=== PATIENT | female | born 1945 | race African-American/Black ===

== ENCOUNTER 2016-09-27 13:47 | Outpatient (CLI) | payer MEDICARE ==
[2016-09-27 16:37] LABS: ALT (SGPT) 17 U/L (0-55); AST (SGOT) 16 U/L (5-34); Albumin 4.1 g/dL (3.4-4.8); Alkaline Phosphatase 50 U/L (40-150); Anion Gap 13 mmol/L (10-20); BUN (Urea Nitrogen) 17 mg/dL (9.8-20.1); Calc. Creatinine Clearance 0 mL/min (70-130); Calcium 9.4 mg/dL (7.8-10.44); Carbon Dioxide 28 mmol/L (23-31); Chloride 105 mmol/L (98-107); Estimated GFR-MDRD 83; Globulin 2.9 g/dL (2.4-3.5); Glucose 85 mg/dL (83-110); Potassium 3.8 mmol/L (3.5-5.1); Sodium 142 mmol/L (136-145)
[2016-09-27 17:36] LABS: Hemoglobin A1c 5.4 % (4.0-6.0)
[2016-09-27 21:13] LABS: Eosinophils 3 % (0-10); Hemoglobin 13.5 g/dL (12.0-16.0); Lymphocytes 27 % (21-51); MDiff Complete? YES; Mean Corpuscular HGB CONC 32.8 g/dL (32.0-36.0); Mean Corpuscular Hemoglobin 24.3 pg (27.0-31.0); Microcytosis SLIGHT = 6-15 cells (100X) (0-5/hpf); Monocytes 7 % (0-10); Neutrophil 63 % (42-75); PLT Morphology Comment Appears Adequate; Platelet Count 176 thou/uL (130-400); RBC Distribution Width 13.8 % (11.5-14.5); Red Blood Cell (RBC) Count 5.57 mill/uL (4.20-5.40)
[2016-09-27 21:37] LABS: White Blood Cell (WBC) Count 8.4 thou/uL (4.8-10.8)
== END 2016-09-27 13:48 | disposition home or self-care (01) ==
LOC: LABLEX 13:47
PROVIDERS: ATTEND Family Medicine
DX: E78.5 Hyperlipidemia, unspecified (principal); E05.90 Thyrotoxicosis, unspecified without thyrotoxic crisis or storm; E11.9 Type 2 diabetes mellitus without complications; I10 Essential (primary) hypertension; R71.8 Other abnormality of red blood cells
CPT/HCPCS: 80053; 83036; 84443; 85025

== ENCOUNTER 2016-11-19 13:38 | Outpatient (CLI) | payer MEDICARE ==
[2016-11-19 15:01] LABS: Free T4 (Free Thyroxine) 1.04 ng/dL (0.70-1.48); Thyroid Stimulating Hormone 0.5047 uIU/mL (0.35-4.94)
== END 2016-11-19 13:39 | disposition home or self-care (01) ==
LOC: BURLAB 13:38
PROVIDERS: ATTEND Internal Medicine Endocrinology, Diabetes & Metabolism
DX: E03.9 Hypothyroidism, unspecified (principal); E05.90 Thyrotoxicosis, unspecified without thyrotoxic crisis or storm
CPT/HCPCS: 36415; 84439; 84443; 84481

== ENCOUNTER 2019-07-22 07:16 | Emergency (ER) | payer MEDICARE ==
[2019-07-22] MEDS ORDERED: methylPREDNISolone Sod Succ/PF 125 MG/2 ML VIAL ONE (07:41)
[2019-07-22] MEDS ORDERED: Albuterol Sulfate 2.5 mg/0.5 ml Neb ONE ×2 (08:13→08:14)
== END 2019-07-22 08:44 | disposition home or self-care (01) ==
LOC: BURERS 07:16
DX: J45.901 Unspecified asthma with (acute) exacerbation (principal); E11.9 Type 2 diabetes mellitus without complications; E78.5 Hyperlipidemia, unspecified; E78.00 Pure hypercholesterolemia, unspecified; I10 Essential (primary) hypertension; Z79.899 Other long term (current) drug therapy
CPT/HCPCS: 94640; 96372; J2930; J7611; J7620

== ENCOUNTER 2019-07-26 13:35 | Inpatient (IN) | payer MEDICARE ==
[2019-07-26] MEDS ORDERED: Albuterol Sulfate 1.25 MG/3 ML NEB ONE ×2 (14:00→14:50)
[2019-07-26] MEDS ORDERED: Magnesium 2 GM/50 ML BAG (IN WATER) ONE (14:25)
[2019-07-26] MEDS ORDERED: cefTRIAXone\\ROCEPHIN 2 GM VIAL ONE ×2 (14:25→15:16)
[2019-07-26] MEDS ORDERED: Sodium Chloride 0.9% 100 ML ONE ×2 (14:27→15:16)
[2019-07-26 14:38] LABS: #Basophils 0.1 thou/uL (0.0-0.2); #Eosinphils 0.5 thou/uL (0.0-0.7); #Lymphocytes 1.7 thou/uL (1.20-3.40); #Monocytes 0.6 thou/uL (0.11-0.59); #Neutrophils 6.3 thou/uL (1.40-6.50); %Basophils 1.6 % (0.0-1.0); %Eosinophils 5.2 % (0.0-10.0); %Monocytes 6.2 % (0.0-10.0); Mean Corpuscular HGB CONC 31.1 g/dL (32.0-36.0); Mean Corpuscular Hemoglobin 22.1 pg (27.0-31.0); Mean Corpuscular Volume 71.3 fL (78.0-98.0); Platelet Count 277 thou/uL (130-400); RBC Distribution Width 15.5 % (11.5-14.5); Red Blood Cell (RBC) Count 6.32 mill/uL (4.20-5.40); White Blood Cell (WBC) Count 9.2 thou/uL (4.8-10.8)
[2019-07-26 14:48] LABS: Anion Gap 14 mmol/L (10-20); BUN (Urea Nitrogen) 11 mg/dL (9.8-20.1); Calc. Creatinine Clearance 0 mL/min (70-130); Calcium 9.6 mg/dL (7.8-10.44); Carbon Dioxide 29 mmol/L (23-31); Chloride 104 mmol/L (98-107); Estimated GFR-MDRD 71; Glucose 145 mg/dL (83-110); Potassium 4.1 mmol/L (3.5-5.1); Sodium 143 mmol/L (136-145)
[2019-07-26 14:52] LABS: Hypochromia SLIGHT = 6-15 cells (100X) (0-5/hpf); Microcytosis SLIGHT = 6-15 cells (100X) (0-5/hpf)
[2019-07-26] MEDS ORDERED: methylPREDNISolone Sod Succ/PF 125 MG/2 ML VIAL ONE (15:48)
[2019-07-26] MEDS ORDERED: Azithromycin 250 MG TAB ONE (15:48)
[2019-07-26 17:45] VITALS: BMI 40.7
[2019-07-26] MEDS ORDERED: Ventolin HFA Inhaler 60 PUFF INHALER INH PRN (18:03)
[2019-07-26] MEDS ORDERED: Acetaminophen 325 MG TAB PO PRN (19:01)
[2019-07-26] MEDS ORDERED: Ondansetron ODT 4 MG TAB PO PRN (19:01)
[2019-07-26] MEDS ORDERED: Ondansetron PF 4 MG/2 ML Vial SLOW IVP PRN (19:01)
[2019-07-26] MEDS ORDERED: Albuterol Sulfate 2.5 mg/3 ml Neb NEB PRN (19:02)
[2019-07-26] MEDS: Sodium Chloride 0.9% 1,000 ML IV SCH (19:10)
--- NOTE | 2019-07-26 20:20 | RAD ---
PORTABLE CHEST: 07/26/19 An AP portable film at 1405 is compared with a prior study dated 03/06/19. The heart is not large today. There are no congestive findings or acute interstitial infiltrates. The right hilum is still somewhat prominent in size, so I cannot exclude pathology here, though it does not seem tremendously different than before. There are no large effusions. Some minor right basilar s treaking may be scarring. It is difficult to fully assess the left base on this portable study. IMPRESSION: 1. Overall improvement in the appearance of the chest since the February exam. 2. Mild right hilar enlargement, not unlike the prior study. POS: HOME
[2019-07-26] MEDS ORDERED: Non-Formulary Item 1 EACH (Lisinopril/Hydrochlorothiazide [Lisinopril-Hctz 20-12.5 Mg Tab PO SCH (21:00)
[2019-07-26] MEDS: Hydrochlorothiazide 25 MG TAB PO SCH (21:08)
[2019-07-26] MEDS: Simvastatin 40 MG TAB PO SCH (21:09)
[2019-07-26] MEDS: Lisinopril 20 MG TAB PO SCH (21:09)
[2019-07-26] MEDS: Amlodipine 5 MG TAB PO SCH (21:10)
[2019-07-26] MEDS: methylPREDNISolone Sod Succ/PF 125 MG/2 ML VIAL IVP SCH (21:19)
[2019-07-27] MEDS: Sodium Chloride 0.9% 1,000 ML IV SCH (05:17)
[2019-07-27] MEDS: methylPREDNISolone Sod Succ/PF 125 MG/2 ML VIAL IVP SCH ×3 (05:18→21:06)
[2019-07-27 05:59] LABS: #Basophils 0.1 thou/uL (0.0-0.2); #Lymphocytes 1.3 thou/uL (1.20-3.40); #Monocytes 0.1 thou/uL (0.11-0.59); #Neutrophils 10.6 thou/uL (1.40-6.50); %Basophils 0.5 % (0.0-1.0); %Eosinophils 0.1 % (0.0-10.0); %Lymphocytes 10.8 % (21.0-51.0); %Monocytes 0.7 % (0.0-10.0); %Neutrophils 87.9 % (42.0-75.0); Hemoglobin 13.3 g/dL (12.0-16.0); Mean Corpuscular HGB CONC 31.6 g/dL (32.0-36.0); Mean Corpuscular Hemoglobin 22.3 pg (27.0-31.0); Mean Corpuscular Volume 70.4 fL (78.0-98.0); Mean Platelet Volume 8.2 fL (7.4-10.4); Platelet Count 262 thou/uL (130-400); RBC Distribution Width 15.5 % (11.5-14.5); Red Blood Cell (RBC) Count 5.98 mill/uL (4.20-5.40)
[2019-07-27 06:00] LABS: ALT (SGPT) 16 U/L (8-55); AST (SGOT) 11 U/L (5-34); Alkaline Phosphatase 59 U/L (40-110); Anion Gap 16 mmol/L (10-20); BUN (Urea Nitrogen) 16 mg/dL (9.8-20.1); Bilirubin, Total 0.4 mg/dL (0.2-1.2); Calc. Creatinine Clearance 100 mL/min (70-130); Calcium 9.1 mg/dL (7.8-10.44); Carbon Dioxide 23 mmol/L (23-31); Chloride 106 mmol/L (98-107); Estimated GFR-MDRD 80; Globulin 2.7 g/dL (2.4-3.5); Glucose 231 mg/dL (83-110); Potassium 4.1 mmol/L (3.5-5.1); Protein, Total 6.7 g/dL (6.0-8.3); Sodium 141 mmol/L (136-145)
[2019-07-27] MEDS ORDERED: Dextrose 5% in Water 1,000 ML IV PRN (06:05)
[2019-07-27] MEDS ORDERED: Dextrose 50% Abboject 50 ML SYRINGE SLOW IVP PRN (06:05)
[2019-07-27 06:31] LABS: Anisocytosis SLIGHT = 6-15 cells (100X) (0-5/hpf); MDiff Complete? YES; Microcytosis SLIGHT = 6-15 cells (100X) (0-5/hpf); Platelet Morphology Comment Appears Adequate
[2019-07-27] MEDS: Mometasone/Formoterol 60 PUFF AER INH SCH ×2 (07:15→18:27)
[2019-07-27] MEDS: HumaLOG 300 UNITS/3 ML VIAL SC PRN ×4 (08:36→21:38)
[2019-07-27] MEDS: Famotidine 20 MG TAB PO SCH ×2 (08:36→21:10)
[2019-07-27] MEDS: Hydrochlorothiazide 25 MG TAB PO SCH ×2 (08:37→21:09)
[2019-07-27] MEDS: metFORMIN 500 MG TAB PO SCH (08:37)
[2019-07-27] MEDS: Azithromycin 250 MG TAB PO SCH (08:37)
[2019-07-27] MEDS: Aspirin 81 mg Enteric Coated Tablet PO SCH (08:37)
[2019-07-27] MEDS: Lisinopril 20 MG TAB PO SCH ×2 (08:37→21:08)
[2019-07-27] MEDS: Ferrous Sulfate 325 MG TAB PO SCH (08:37)
--- NOTE | 2019-07-27 10:46 | HP ---
CHIEF COMPLAINT: Shortness of breath. HISTORY OF PRESENT ILLNESS: This is a 74-year-old female, patient of Ms. Garcia in [place] with an underlying history of asthma, who presented to the [facility] Emergency Department yesterday afternoon with worsening shortness of breath, not relieved with her usual nebulized medications at home. She had been seen in the emergency department a few days ago and then was treated based on her symptoms, however, did not improve, prompting her return. She has had a prior asthma exacerbation, requiring admission within the last year, which was in November 2018. The patient reports to not be on a controller medication at this time. She was formally on Advair, however, is unable to afford this. In the emergency department, the patient received intravenous Solu-Medrol, albuterol nebs, magnesium, DuoNeb treatments, Rocephin, and Zithromax. The patient became notably tachypneic, dyspneic with associated tachycardia with saturations dipping to 90% after this treatment, thus it was recommended for the patient to admit for further care to improve her respiratory status. As of this morning, she does report to be breathing somewhat better at rest; however, she has not been re-evaluated in regard to her respiratory status with activity. PAST MEDICAL HISTORY: Hypertension, type 2 diabetes mellitus, dyslipidemia, and asthma. PAST SURGICAL HISTORY: Lymph node excision from the neck. FAMILY HISTORY: Mother from myocardial infarction. Father with a history of stomach cancer. SOCIAL HISTORY: The patient lives in [place] with her . She is a nonsmoker with no EtOH or illicit drug use. ALLERGIES: TO PENICILLIN. HOME MEDICATIONS: 1. Metformin 1000 mg p.o. daily. 2. Albuterol/ProAir inhaler q.4 hours p.r.n. 3. Aspirin 81 mg daily. 4. Ferrous sulfate 325 mg daily. 5. p.o. daily. 6. Amlodipine 5 mg at bedtime. 7. Lisinopril and hydrochlorothiazide 20/12.5 p.o. b.i.d. 8. Simvastatin 20 mg at bedtime. LABORATORY DATA: White blood cell count 9.2, this morning is 12.0 with a left shift; hemoglobin 13.3; hematocrit 42.1; platelets 262. Sodium 141, potassium 4.1, BUN 16, creatinine 0.84, GFR 80, and glucose this morning is 231. AST 11 and ALT 16. Troponin was less than 0.010. BNP 59.8. IMAGING DATA: Chest x-ray on 07/26/2019 showed overall improvement in the appearance of the chest since the February exam with mild right hilar enlargement, not unlike the prior study. PHYSICAL EXAMINATION: VITAL SIGNS: Temperature is 98.1, pulse is 103, blood pressure is 140/82, respiratory rate is 20, and oxygen is 97% on room air. GENERAL: The patient is alert and oriented, in no acute distress. She is obese. HEAD, EYES, EARS, NOSE, AND THROAT: Normocephalic and atraumatic. She has moist mucous membranes. Extraocular muscles are intact. Pupils are equal, round, and reactive to light. NECK: Supple without lymphadenopathy. CARDIOVASCULAR: Regular rate and rhythm with normal S1 and S2. Borderline tachycardia. RESPIRATORY: The patient has diminished air flow throughout lung ramesh with expiratory wheezes. ABDOMEN: Soft and nontender with no rebound or guarding. EXTREMITIES: No clubbing, cyanosis or edema. NEUROLOGIC: Nonfocal. Cranial nerves 2 through 12 grossly intact. SKIN: No rashes. ASSESSMENT AND PLAN: 1. Asthma exacerbation. We will continue the patient on scheduled nebulized treatments with IV Solu-Medrol. We will add the controller medication and Dulera, and plan to discharge her on this medication to try to help prevent future exacerbations. We will provide the patient with an incentive spirometer and seeking evaluation with Physical Therapy to ambulate the patient and further assess her respiratory status with activity. We will provide supplemental oxygen to keep her sats greater than 92% as needed. We will continue the patient on azithromycin p.o. at this time, although I suspect her leukocytosis is largely secondary to the IV steroids. She does have a left shift. We will discontinue the IV Rocephin. 2. Type 2 diabetes mellitus. We will resume the patient's oral medications and add a Humalog sliding scale. She has been started on a consistent carb diet. 3. Hypertension. The patient is hemodynamically stable. Resume her home blood pressure medications. 4. Dyslipidemia. We will resume the patient's statin. 5. PPx: famotidine for GI prophylaxis and Lovenox for DVT prophylaxis CODE STATUS: Full. DISPOSITION: We will plan to discharge the patient to her home setting once she is at or near her baseline respiratory status. Job ID: [id number] MTDD
[2019-07-27] MEDS: FOLIC ACID PO SCH (14:49)
[2019-07-27] MEDS: [UNRECOGNIZED DRUG - OTHER] PO SCH (14:49)
[2019-07-27] MEDS: B6 PO SCH (14:49)
[2019-07-27] MEDS: VIT B12 PO SCH (14:49)
[2019-07-27] MEDS ORDERED: cefTRIAXone\\ROCEPHIN 1 GM in Sodium Chloride 0.9% 100 ML IVPB SCH (15:00)
[2019-07-27] MEDS ORDERED: Enoxaparin Sodium 40 MG/0.4 ML SYRINGE SC SCH (21:00)
[2019-07-27] MEDS: Amlodipine 5 MG TAB PO SCH (21:09)
[2019-07-27] MEDS: Simvastatin 40 MG TAB PO SCH (21:10)
[2019-07-28 05:47] LABS: ALT (SGPT) 16 U/L (8-55); AST (SGOT) 9 U/L (5-34); Albumin 4.1 g/dL (3.4-4.8); Alkaline Phosphatase 63 U/L (40-110); Anion Gap 15 mmol/L (10-20); BUN (Urea Nitrogen) 22 mg/dL (9.8-20.1); Bilirubin, Total 0.3 mg/dL (0.2-1.2); Calc. Creatinine Clearance 89 mL/min (70-130); Calcium 9.2 mg/dL (7.8-10.44); Carbon Dioxide 25 mmol/L (23-31); Chloride 103 mmol/L (98-107); Estimated GFR-MDRD 70; Globulin 2.7 g/dL (2.4-3.5); Glucose 270 mg/dL (83-110); Potassium 3.9 mmol/L (3.5-5.1); Protein, Total 6.8 g/dL (6.0-8.3); Sodium 139 mmol/L (136-145)
[2019-07-28 05:54] VITALS: BP 132/63; TEMP 98.2
[2019-07-28 05:58] LABS: Hemoglobin 13.5 g/dL (12.0-16.0); Mean Corpuscular HGB CONC 31.8 g/dL (32.0-36.0); Mean Corpuscular Hemoglobin 22.2 pg (27.0-31.0); Mean Corpuscular Volume 69.9 fL (78.0-98.0); Mean Platelet Volume 7.7 fL (7.4-10.4); Platelet Count 270 thou/uL (130-400); RBC Distribution Width 15.6 % (11.5-14.5); Red Blood Cell (RBC) Count 6.08 mill/uL (4.20-5.40); White Blood Cell (WBC) Count 24.7 thou/uL (4.8-10.8)
[2019-07-28] MEDS: methylPREDNISolone Sod Succ/PF 125 MG/2 ML VIAL IVP SCH (06:13)
[2019-07-28] MEDS: Mometasone/Formoterol 60 PUFF AER INH SCH ×2 (06:13→08:25)
[2019-07-28 08:00] LABS: Anisocytosis SLIGHT = 6-15 cells (100X) (0-5/hpf); Lymphocytes 5 % (21-51); MDiff Complete? YES; Monocytes 1 % (0-10); Neutrophil 94 % (42-75); Platelet Morphology Comment Appears Adequate
[2019-07-28] MEDS: HumaLOG 300 UNITS/3 ML VIAL SC PRN (08:24)
[2019-07-28] MEDS: Famotidine 20 MG TAB PO SCH (08:29)
[2019-07-28] MEDS: Aspirin 81 mg Enteric Coated Tablet PO SCH (08:30)
[2019-07-28] MEDS: VIT B12 PO SCH (08:30)
[2019-07-28] MEDS: metFORMIN 500 MG TAB PO SCH (08:30)
[2019-07-28] MEDS: Azithromycin 250 MG TAB PO SCH (08:30)
[2019-07-28] MEDS: B6 PO SCH (08:30)
[2019-07-28] MEDS: FOLIC ACID PO SCH (08:30)
[2019-07-28] MEDS: Lisinopril 20 MG TAB PO SCH (08:30)
[2019-07-28] MEDS: Ferrous Sulfate 325 MG TAB PO SCH (08:30)
[2019-07-28] MEDS: [UNRECOGNIZED DRUG - OTHER] PO SCH (08:30)
[2019-07-28] MEDS: Hydrochlorothiazide 25 MG TAB PO SCH (08:31)
--- NOTE | 2019-07-28 21:46 | DIS ---
DATE OF ADMISSION: 07/26/2019 DATE OF DISCHARGE: 07/28/2019 ADMISSION DIAGNOSES: Asthma exacerbation. SECONDARY DIAGNOSIS: Type 2 diabetes mellitus, hypertension, and dyslipidemia. PROCEDURES: 07/26/2019, chest x-ray showed overall improvement in the appearance of the chest since the February exam. Mild right hilar enlargement, not unlike the prior study. HOSPITAL COURSE: A 74-year-old female with underlying history of asthma, who is followed by Namrata Garcia in [place], presented to the [facility] Emergency Department with dyspnea that was not relieved by her home medications. She had been seen in the emergency department a couple of days prior and was prescribed antibiotics and steroids. However, she did not obtain these. She also notes that she has been out of her baseline medication Advair for approximately one week prior to her return to the emergency department. Her last admission for asthma exacerbation was in November of 2018. In the emergency department, the patient received IV Solu-Medrol, albuterol nebs, magnesium, DuoNeb treatments, Rocephin, and Zithromax. Upon ambulation, the patient became tachypneic with dyspnea and tachycardia with O2 saturations dropping to borderline levels. Thus, it was advised to the patient to admit to improve her respiratory status. Secondary to the patient's reassuring chest x-ray and initial lack of leukocytosis, Rocephin was discontinued. However, she was continued on azithromycin. She was also provided scheduled nebulized treatments, IV Solu-Medrol, and the use of an incentive spirometer. The patient did develop leukocytosis and hyperglycemia, which was attributed to her IV steroids. She remained afebrile throughout her stay. She also remained stable on room air. She was evaluated by Physical Therapy in regard to her ability to maintain her vitals and sufficient respiratory status with activities. The patient was able to be cleared by Physical Therapy and her respiratory status did improve close to her baseline. The patient is stable on room air and feels well enough to return home at this time. She was counseled on the importance of medication compliance in regard to her diagnosis. DISPOSITION: The patient will be discharged home, where she lives with her in [place]. She may follow up with Ms. Sam in approximately 1 week. DISCHARGE MEDICATIONS: Include Advair 2 puffs b.i.d., and her prescribed azithromycin, both of which have been picked by her today. Only medication otherwise will be prednisone 40 mg x3 days followed by 20 mg x2 days. She will resume her home medications which include metformin 1000 mg daily, ProAir one inhalation q.6 hours p.r.n., aspirin 81 mg daily, ferrous sulfate 325 mg daily, vitamin B12, folic acid 500 mg daily, amlodipine 5 mg at bedtime, lisinopril/hydrochlorothiazide 20-12.5 mg b.i.d., and simvastatin 20 mg at bedtime. Job ID: [id number] [facility]
== END 2019-07-28 12:30 | disposition home or self-care (01) | DRG 202 ==
LOC: BURERS 13:35 → BURMED 15:25
PROVIDERS: ADMIT Family Medicine; ATTEND Family Medicine
DX: J45.901 Unspecified asthma with (acute) exacerbation (principal); Z68.41 Body mass index [BMI] 40.0-44.9, adult; I10 Essential (primary) hypertension; E11.9 Type 2 diabetes mellitus without complications; E78.5 Hyperlipidemia, unspecified; Z98.890 Other specified postprocedural states; Z88.0 Allergy status to penicillin; Z79.84 Long term (current) use of oral hypoglycemic drugs; Z79.82 Long term (current) use of aspirin; E66.9 Obesity, unspecified
CPT/HCPCS: 36415; 36416; 71045; 80048; 80053; 83880; 84484; 85025; 94640; 94664; 94760; 96365; 96367; 96375; J0696; J1650; J2930; J3475; J3490; J7620

== ENCOUNTER 2020-08-02 09:22 | Emergency (ER) | payer MEDICARE ==
[2020-08-02 10:15] LABS: Bilirubin Negative (Negative); Blood, Urine Trace (Negative); Clarity Clear (Clear); Glucose, Urine (Dipstick) Negative (Negative); Ketone, Urine Negative (Negative); Leukocyte Moderate (Negative); Nitrite Negative (Negative); Protein, Urine (Dipstick) Negative (Neg-Trace); Specific Gravity, Urine 1.015 (1.005-1.030); Urobilinogen 0.2 mg/dL (Less than 2); pH, Urine 6.5 (5.0-9.0)
[2020-08-02 10:36] LABS: RBC/HPF 0-3 HPF (0-3); WBC/HPF 0-3 HPF (0-3)
[2020-08-02 10:37] LABS: Bacteria/HPF 1+ HPF (None Seen)
[2020-08-02 23:49] LABS: SARS-CoV-2 PCR by NAA Not Detected (NotDetected)
== END 2020-08-02 10:56 | disposition home or self-care (01) ==
LOC: BURERS 09:22
DX: R50.9 Fever, unspecified (principal); R10.9 Unspecified abdominal pain; Z20.822 Contact with and (suspected) exposure to COVID-19; E11.9 Type 2 diabetes mellitus without complications; E78.5 Hyperlipidemia, unspecified; E78.00 Pure hypercholesterolemia, unspecified; I10 Essential (primary) hypertension
CPT/HCPCS: 87086; 99284; U0003; U0005; 81003; 81015; 87635

== ENCOUNTER 2021-04-06 12:01 | Outpatient (CLI) | payer MEDICARE | END 2021-04-06 12:02 | disposition home or self-care (01) | LOC: BURRAD 12:01 | PROVIDERS: ATTEND Family Medicine | DX: M25.561 Pain in right knee (principal); M17.11 Unilateral primary osteoarthritis, right knee; M25.461 Effusion, right knee ==

== ENCOUNTER 2023-12-27 15:54 | Emergency (ER) | payer MEDICARE ==
[~2023-12-27 15:54] MED LIST: Iopamidol 370 76% 100 ML VIAL ONE
[2023-12-27 16:40] LABS: INR-International Normal Ratio 1.1; Prothrombin Time 14.3 sec (12.0-14.7)
[2023-12-27 16:41] LABS: PTT 28.8 sec (22.9-36.1)
[2023-12-27 16:42] LABS: Bilirubin Negative (Negative); Blood, Urine Negative (Negative); Clarity Cloudy (Clear); Glucose, Urine (Dipstick) >=1000 mg/dL (Negative); Ketone, Urine Negative (Negative); Leukocyte Small (Negative); Nitrite Negative (Negative); Protein, Urine (Dipstick) Negative (Neg-Trace); Specific Gravity, Urine 1.025 (1.005-1.030); Urobilinogen > or = 8.0 mg/dL (Less than 2)
[2023-12-27 16:49] LABS: ALT (SGPT) 12 U/L (8-55); AST (SGOT) 11 U/L (5-34); Albumin 3.9 g/dL (3.4-4.8); Alkaline Phosphatase 66 U/L (40-110); Anion Gap 17 mmol/L (10-20); BUN (Urea Nitrogen) 22 mg/dL (9.8-20.1); Bilirubin, Total 0.8 mg/dL (0.2-1.2); Calc. Creatinine Clearance 0 mL/min (70-130); Calcium 9.3 mg/dL (7.8-10.44); Carbon Dioxide 20 mmol/L (23-31); Chloride 108 mmol/L (98-107); Estimated GFR 41; Globulin 3.2 g/dL (2.4-3.5); Glucose 119 mg/dL (83-110); Potassium 4.2 mmol/L (3.5-5.1); Protein, Total 7.1 g/dL (5.8-8.1); Sodium 141 mmol/L (136-145)
[2023-12-27 16:49] LABS: Bacteria/HPF 4+ HPF (None Seen); CAUTI Indications for Culture Dysuria,urgency,freq; RBC/HPF 0-3 HPF (0-3); Renal Epithelial 0-3 HPF (None Seen); Yeast-Budding Rare HPF (None Seen)
[2023-12-27 16:50] LABS: Urine Culture Reflex No No
[2023-12-27 16:51] LABS: #Basophils 0.1 thou/uL (0.0-0.2); #Eosinphils 0.2 thou/uL (0.0-0.7); #Lymphocytes 1.2 thou/uL (1.20-3.40); #Monocytes 0.9 thou/uL (0.11-0.59); #Neutrophils 7.3 thou/uL (1.40-6.50); %Basophils 0.8 % (0.0-1.0); %Lymphocytes 12.4 % (21.0-51.0); %Monocytes 9.5 % (0.0-10.0); %Neutrophils 75.3 % (42.0-75.0); Hematocrit 44.7 % (36.0-47.0); Hemoglobin 14.3 g/dL (12.0-16.0); Mean Corpuscular HGB CONC 32.1 g/dL (32.0-36.0); Mean Corpuscular Hemoglobin 21.6 pg (27.0-31.0); Mean Corpuscular Volume 67.4 fl (78.0-98.0); Mean Platelet Volume 7.2 fL (7.4-10.4); Platelet Count 276 10x3/uL (130-400); RBC Distribution Width 15.7 % (11.5-14.5); Red Blood Cell (RBC) Count 6.63 mill/uL (4.20-5.40); White Blood Cell (WBC) Count 9.8 10x3/uL (4.8-10.8)
[2023-12-27 17:03] LABS: MDiff Complete? YES
[2023-12-27 17:39] LABS: Influenza A by NAA Not Detected (NotDetected); Influenza B by NAA Not Detected (NotDetected); SARS-CoV-2 NAA Rapid Test Not Detected (NotDetected)
[2023-12-27] MEDS ORDERED: Piperacillin/Tazobactam 4.5 GM VIAL ONE (17:59)
[2023-12-27] MEDS ORDERED: Sodium Chloride 0.9% 100 ML ONE (17:59)
[2023-12-27] MEDS ORDERED: Azithromycin 500 MG VIAL ONE (18:10)
== END 2023-12-27 19:50 | disposition home or self-care (01) ==
LOC: BURERS 15:54
DX: J18.9 Pneumonia, unspecified organism (principal); E11.9 Type 2 diabetes mellitus without complications; I10 Essential (primary) hypertension
CPT/HCPCS: 36415; 71275; 80053; 81001; 83605; 83880; 84484; 85025; 85610; 85730; 87040; 93005; 94760; 96365; 96367; J0456; J2543; J3490; Q9967

== ENCOUNTER 2025-05-28 08:44 | Emergency (ER) | payer MEDICARE ==
[2025-05-28 09:11] LABS: Hematocrit 43.6 % (36.0-47.0); Hemoglobin 13.4 g/dL (12.0-16.0); Mean Corpuscular Hemoglobin 22.9 pg (27.0-31.0); Mean Corpuscular Volume 74.4 fl (78.0-98.0); Platelet Count 318 10x3/uL (130-400); Red Blood Cell (RBC) Count 5.86 mill/uL (4.20-5.40); White Blood Cell (WBC) Count 9.3 10x3/uL (4.8-10.8)
[2025-05-28 09:25] LABS: Anisocytosis SLIGHT = 6-15 cells (100X) (0-5/hpf); MDiff Complete? YES; Microcytosis SLIGHT = 6-15 cells (100X) (0-5/hpf); Platelet Adequacy Comment Appears Adequate
[2025-05-28 09:34] LABS: Troponin I 0.019 ng/mL (< 0.028)
[2025-05-28 09:41] LABS: ALT (SGPT) 9 U/L (Less than 34); AST (SGOT) 11 U/L (11-34); Albumin 3.7 g/dL (3.1-4.5); Alkaline Phosphatase 56 U/L (40-110); Anion Gap 17 mmol/L (10-20); BUN (Urea Nitrogen) 22 mg/dL (9.8-20.1); Bilirubin, Total 0.6 mg/dL (0.3-1.2); Calc. Creatinine Clearance 0 mL/min (70-130); Calcium 9.3 mg/dL (7.8-10.44); Carbon Dioxide 20 mmol/L (23-31); Chloride 112 mmol/L (98-107); Globulin 3.1 g/dL (2.4-3.5); Glucose 114 mg/dL (83-110); Potassium 4.3 mmol/L (3.5-5.1); Sodium 145 mmol/L (136-145)
[2025-05-28] MEDS ORDERED: Furosemide 40 MG (4 mL) VIAL ONE (09:55)
== END 2025-05-28 11:45 | disposition home or self-care (01) ==
LOC: BURERS 08:44
DX: I11.0 Hypertensive heart disease with heart failure (principal); I50.33 Acute on chronic diastolic (congestive) heart failure; J45.909 Unspecified asthma, uncomplicated; E11.9 Type 2 diabetes mellitus without complications; Z79.82 Long term (current) use of aspirin; Z79.84 Long term (current) use of oral hypoglycemic drugs; Z79.899 Other long term (current) drug therapy
CPT/HCPCS: 71045; 80053; 83880; 84484; 85025; 93005; 94760; 96374; 96375; J1940; J2919